=== PATIENT | male | born 1995 | race Caucasian/White ===

== ENCOUNTER 2019-05-02 10:57 | Emergency (ER) | payer BC ==
[2019-05-02 11:11] VITALS: BP 132/85
--- NOTE | 2019-05-02 11:36 | UC ---
Throat Pain/Nasal Yanick HPI - HPI Summary HPI Summary: Patient presents to urgent care for evaluation of progressive pain in his ears left worse than right. Patient describes it as a constant pressure with intermittent shooting pain. Patient states when he swallows. Gets worse. Patient dates he's had a head cold that he's been taking [id number] symptomatic treatment. Patient has been taking Motrin time as well but helped somewhat. Patient's was sick with what seemed like the flu last week but she's gotten better. Patient denies any drainage from his ear. Patient did not get the flu vaccine. Patient's medications as mentioned in the EMR by triage nurse reviewed this visit. - History of Current Complaint Chief Complaint: UCEar Stated Complaint: ST,CONGESTION Time Seen by Provider: 05/02/19 11:27 Hx Obtained From: Patient Severity: Moderate Pain Intensity: 6 Pain Scale Used: 0-10 Numeric - Allergies/Home Medications Allergies/Adverse Reactions: Allergies Allergy/AdvReac Type Severity Reaction Status Date / Time No Known Allergies Allergy Verified 05/02/19 11:06 Home Medications: Home Medications D-Methorphan/PE/Acetaminophen [Daytime Cold Multi-Symp Gelcap] 2 each PO BID PRN 05/02/19 [History Confirmed 05/02/19] Ibuprofen TAB* [Advil TAB*] 400 mg PO Q6H PRN 05/02/19 [History Confirmed ] PMH/Surg Hx/FS Hx/Imm Hx Previously Healthy: Yes - Surgical History Surgical History: None - Family History Known Family History: Positive: Non-Contributory - Social History Occupation: Employed Full-time Lives: With Family Alcohol Use: Occasionally Substance Use Type: None Smoking Status (MU): Never Smoked Tobacco Review of Systems All Other Systems Reviewed And Are Negative: Yes Constitutional: Positive: Negative ENT: Positive: Ear Ache, Sinus Congestion, Sinus Pain/Tenderness Physical Exam - Summary Physical Exam Summary: Vital Signs Reviewed: Yes A+Ox3, no distress Eyes: Conjunctiva Clear, NIKKIE. EOM intact and full ENT: Hearing grossly normal, right TM + erythema partial obstruction of view by cerumen left TM ++ erythema, buldge, turbiantes inflammed, + PND, mmoist, uvula midline, no exudate, no erythema Neck: Positive: Supple Respiratory: Positive: No respiratory distress, No accessory muscle use + CTA throughout no w/r Cardiovascular: RRR nl s1, s2 no m/r CBT <2 sec abd soft + BS nt/nd no guarding, no distension Musculoskeletal Exam: CORONADO x 4 without difficulty Strength Intact, ROM Intact Neurological: Positive: Alert, + sensation throughout Psychological: Positive: Normal Response To examiner Skin: Positive: no rash, no ecchymosis Triage Information Reviewed: Yes Vital Signs: Initial Vital Signs Temp 98.7 F 05/02/19 11:07 Pulse 70 05/02/19 11:07 Resp 16 05/02/19 11:07 BP 132/85 05/02/19 11:07 Pulse Ox 100 05/02/19 11:07 Throat Pain/Nasal Course/Dx - Course Course Of Treatment: Patient presents to urgent care for evaluation of head congestion associated with his ears. Left thyroid. On exam vital signs are stable. Patient's right TM is partially obscured by cerumen. Patient does have some visible erythema. On his left ear consistent with otitis media. Patient does have inflamed turbinates in place as well. We'll defer on either getting the ear today's it will hurt his membrane given does appear erythematous. Discussed with patient follow-up regarding that. Recommend Motrin and Tylenol. Antibiotic. Secretion percussion. Return precaution. Patient comfortable and agree with plan. - Differential Dx/Diagnosis Provider Diagnosis: Otitis media, Upper respiratory infection Discharge ED - Sign-Out/Discharge Documenting (check all that apply): Patient Departure All imaging exams completed and their final reports reviewed: No Studies - Discharge Plan Condition: Stable Disposition: HOME Prescriptions: Amoxicillin PO (*) [Amoxicillin 500 MG CAP*] 500 mg PO Q12H #20 cap Fluticasone NASAL SPRAY 50MCG* [Flonase NASAL SPRAY 50MCG*] 2 spray BOTH NARES DAILY #1 btl Patient Education Materials: Ear Infection (ED), Upper Respiratory Infection ( ED) Forms: *Gen. Provider Communication, *Work Release Referrals: [facility] [place] [facility] REFERRAL [Outside] No Primary Care Phys,NOPCP [Primary Care Provider] - Additional Instructions: - Okay to alternate ibuprofen (Advil, Motrin) 600mg and Tylenol 1000mg every 3 hours for pain. Take with food. Do NOT take for more than 4-5 days - Okay to gargle and spit warm salt water every 4 hours as needed for pain - Stay well hydrated - frequent sips of cold fluids will be soothing to your throat (popsicles, jello, ice cream, ice water). Avoid excess caffeine until your symptoms have resolved. -Throat infections are spread by oral secretions - do not share eating or drinking utensils until you symptoms are resolved. Clean items that may get your secretions such as cell phones, ipads, computer mouse, television remotes. Once you have been on antibiotics for 2 days, change your toothbrush and your pillowcase. - use nasal spray as prescribed - humidify the air in the room where you sleep - boil water, run a hot steam shower, vaporizer, cups of water by heat register - Okay to take over the counter cough and decongestant medication - Contact your doctor to arrange a follow-up appointment as needed - Billing Disposition and Condition Condition: STABLE Disposition: Home
== END 2019-05-02 11:52 | disposition home or self-care (01) ==
LOC: UCCORT 10:57
DX: H66.92 Otitis media, unspecified, left ear (principal); J06.9 Acute upper respiratory infection, unspecified
CPT/HCPCS: 99202; G0463